=== PATIENT | female | born 1985 | race Caucasian/White ===

== ENCOUNTER 2023-06-23 13:06 | Emergency (ER) | payer MEDICAID ==
[~2023-06-23] VITALS: Ht 157.5 cm; Wt 100.0 kg
[2023-06-23] MEDS ORDERED: ERYT1OIN6 EACHEYE (13:20)
[2023-06-23] MEDS ORDERED: METH-798 PO (13:20)
[2023-06-23 13:34] VITALS: BP 125/80; PULSE 122; RESP 16; TEMP 98.5; O2SAT 99
== END 2023-06-23 16:41 | disposition home or self-care (01) ==
LOC: ER 13:08
DX: H00.013 Hordeolum externum right eye, unspecified eyelid (principal); R25.2 Cramp and spasm
CPT/HCPCS: 99281; 99283

== ENCOUNTER 2023-08-23 20:44 | Emergency (ER) | payer MEDICAID ==
[~2023-08-23] VITALS: Ht 172.7 cm; Wt 116.0 kg
[~2023-08-23 20:44] MED LIST: METH-798 PO
[2023-08-23 20:49] VITALS: PULSE 106; RESP 16; TEMP 98; O2SAT 97
[2023-08-23 21:28] VITALS: BP 129/79
[2023-08-23 21:30] LABS: BASOPHILS # (AUTO) 0.2 X10'3 (0-0.2); EOSINOPHILS # (AUTO) 0.2 X10'3 (0-0.9); EOSINOPHILS % (AUTO) 2.5 % (0-6); HEMATOCRIT 27.7 % (35.0-45.0); LYMPHOCYTES # (AUTO) 2.3 X10'3 (1.1-4.8); LYMPHOCYTES % (AUTO) 25.2 % (21-51); MEAN CORPUSCULAR HEMOGLOBIN 22.8 PG (27.0-31.0); MEAN CORPUSCULAR HGB CONC 32.4 g/dL (33.0-36.5); MEAN CORPUSCULAR VOLUME 70.2 FL (78-98); MEAN PLATELET VOLUME 7.2 FL (7.4-10.4); MONOCYTES # (AUTO) 0.6 X10'3 (0-0.9); MONOCYTES % (AUTO) 6.2 % (2-12); NEUTROPHILS # (AUTO) 5.8 X10'3 (1.8-7.7); NEUTROPHILS % (AUTO) 64.1 % (42-75); PLATELET COUNT 352 X10'3 (140-440); RED BLOOD COUNT 3.94 X10'6 (4.20-5.60); RED CELL DISTRIBUTION WIDTH 17.3 % (11.5-14.5); WHITE BLOOD COUNT 9.1 X10'3 (4.5-11.0)
[2023-08-23 21:44] LABS: APTT 27 SECONDS (22-32); D-DIMER 0.51 MG/L FEU (0-0.50); PROTHROMBIN TIME 9.9 SECONDS (9.0-12.0)
[2023-08-23 21:50] LABS: ALBUMIN 3.4 G/DL (3.4-5.0); ANION GAP 6 (8-16); BLOOD UREA NITROGEN 15 MG/DL (7-18); BUN/CREATININE RATIO 19.7 (10.0-20.0); CALCIUM 8.4 MG/DL (8.5-10.1); CHLORIDE 102 MMOL/L (99-107); CREATININE 0.76 MG/DL (0.40-0.90); GLUCOSE 129 MG/DL (70-104); POTASSIUM 3.7 MMOL/L (3.5-5.1); SODIUM 138 MMOL/L (135-145); TOTAL CARBON DIOXIDE 29.8 MMOL/L (24-32); eCRCL 103 ML/MIN; eGFR 86 ML/MIN
[2023-08-23 21:53] LABS: INR 0.9 INR
[2023-08-23] MEDS ORDERED: FURO20TA4 PO (22:37)
[2023-08-23] MEDS ORDERED: POTA-192 PO (22:37)
[2023-08-24 00:54] LABS: TOTAL CELLS COUNTED 100
[2023-08-24 01:10] LABS: ANISOCYTOSIS 1+; HYPOCHROMASIA 1+; MICROCYTOSIS 1+; PLATELET ESTIMATE NORMAL
[2023-08-24 01:11] LABS: ELLIPTOCYTES FEW
== END 2023-08-23 22:50 | disposition home or self-care (01) ==
LOC: ER 20:45
DX: R60.9 Edema, unspecified (principal); R79.1 Abnormal coagulation profile; Z88.8 Allergy status to other drugs, medicaments and biological substances; Z79.899 Other long term (current) drug therapy
CPT/HCPCS: 36415; 71045; 80048; 84484; 85007; 85025; 85379; 85610; 85730; 93005; 99285

== ENCOUNTER 2023-11-19 03:18 | Emergency (ER) | payer MEDICAID ==
[~2023-11-19] VITALS: Ht 157.5 cm; Wt 100.0 kg
[~2023-11-19 03:18] MED LIST changes: +FURO20TA4 PO
[2023-11-19] MEDS: normal saline 1000ml 1,000 ML IV ONE (03:57)
[2023-11-19 04:35] LABS: STREP A SCREEN NEGATIVE (Neg)
[2023-11-19] MEDS ORDERED: iohexol 300mg/ml 100ml inj. ONE (05:19)
[2023-11-19 06:06] LABS: BASOPHILS # (AUTO) 0.1 X10'3 (0-0.2); BASOPHILS % (AUTO) 0.9 % (0-1); EOSINOPHILS # (AUTO) 0.2 X10'3 (0-0.9); HEMATOCRIT 28.1 % (35.0-45.0); HEMOGLOBIN 8.6 g/dl (12.0-16.0); LYMPHOCYTES % (AUTO) 36.5 % (21-51); MEAN CORPUSCULAR HEMOGLOBIN 21.5 PG (27.0-31.0); MEAN CORPUSCULAR HGB CONC 30.5 g/dL (33.0-36.5); MEAN CORPUSCULAR VOLUME 70.6 FL (78-98); MEAN PLATELET VOLUME 7.6 FL (7.4-10.4); MONOCYTES # (AUTO) 0.9 X10'3 (0-0.9); MONOCYTES % (AUTO) 10.4 % (2-12); NEUTROPHILS % (AUTO) 49.2 % (42-75); PLATELET COUNT 306 X10'3 (140-440); RED BLOOD COUNT 3.98 X10'6 (4.20-5.60); RED CELL DISTRIBUTION WIDTH 18.6 % (11.5-14.5); WHITE BLOOD COUNT 8.2 X10'3 (4.5-11.0)
[2023-11-19 06:12] LABS: ALBUMIN 3.4 G/DL (3.4-5.0); ANION GAP 9 (8-16); BLOOD UREA NITROGEN 8 MG/DL (7-18); BUN/CREATININE RATIO 10.7 (10.0-20.0); CALCIUM 8.5 MG/DL (8.5-10.1); CHLORIDE 106 MMOL/L (99-107); CREATININE 0.75 MG/DL (0.40-0.90); ETHANOL < 10 MG/DL (<10); GLUCOSE 114 MG/DL (70-104); MAGNESIUM 2.1 MG/DL (1.5-2.4); SODIUM 140 MMOL/L (135-145); TOTAL CARBON DIOXIDE 25.2 MMOL/L (24-32); eCRCL 82 ML/MIN; eGFR 87 ML/MIN
[2023-11-19] MEDS ORDERED: ketorolac trometh. 30mg/ml inj. IV ONE (06:25)
[2023-11-19] MEDS: ketorolac tromethamine 15mg/ml inj. IV ONE (06:50)
[2023-11-19] MEDS: methylPREDNISolone sod succ 125mg/2ml vial IV ONE (06:50)
[2023-11-19] MEDS: clindamycin 600mg/D5W 50ml 50 ML IV ONE (06:50)
[2023-11-19 07:00] LABS: HCG SERUM QL NEGATIVE
[2023-11-19 09:23] VITALS: TEMP 98.1
[2023-11-19 12:05] LABS: ANISOCYTOSIS 2+; ELLIPTOCYTES 1+; MICROCYTOSIS 1+; PLATELET ESTIMATE NORMAL; STOMATOCYTES FEW
[2023-11-19 13:06] LABS: BILIRUBIN,URINE NEGATIVE (Neg); CLARITY,URINE CLEAR (Clear); COLOR,URINE YELLOW (Yellow); GLUCOSE, URINE NEGATIVE (Neg); KETONES,URINE NEGATIVE (Neg); LEUKOCYTE ESTERASE ,URINE SMALL (Neg); NITRITES, URINE NEGATIVE (Neg); OCCULT BLOOD,URINE NEGATIVE (Neg); PH,URINE 5.5 (4.8-8.0); PROTEIN,URINE NEGATIVE (Neg); UROBILINOGEN,URINE 0.2 E.U/dL (0.2-1.0)
[2023-11-19 13:13] LABS: UA COLLECTION TYPE NON-SPECIFIED
[2023-11-19 13:14] LABS: BACTERIA,URINE 1+ /HPF (Neg); MUCUS STRANDS FEW /LPF (Neg); SQUAMOUS EPITHELIAL CELL,UR MODERATE /LPF (FEW)
[2023-11-19 13:16] LABS: URINE AMPHETAMINE SCREEN NEGATIVE (Neg); URINE BARBITUATE SCREEN NEGATIVE (Neg); URINE BENZODIAZEPINES SCREEN NEGATIVE (Neg); URINE CANNABINOID SCREEN NEGATIVE (Neg); URINE COCAINE SCREEN NEGATIVE (Neg); URINE METHADONE SCREEN NEGATIVE (Neg); URINE OPIATE SCREEN NEGATIVE (Neg); URINE PHENCYCLIDINE SCREEN NEGATIVE (Neg)
[2023-11-19 17:07] VITALS: BP 158/89; RESP 17
[2023-11-19 19:01] VITALS: PULSE 106; O2SAT 98
== END 2023-11-19 19:53 | disposition left against medical advice (07) ==
LOC: ER 03:18
DX: R22.1 Localized swelling, mass and lump, neck (principal); Z88.8 Allergy status to other drugs, medicaments and biological substances; Z79.899 Other long term (current) drug therapy
CPT/HCPCS: 36415; 70450; 70491; 80048; 80305; 80320; 81001; 83605; 83735; 84145; 84703; 85008; 85025; 87040; 87081; 87088; 87880; 96365; 96375; 99285; J1885; J2919; J3490; J7030; Q9967; 96361

== ENCOUNTER 2023-12-16 23:55 | Emergency (ER) | payer MEDICAID ==
[~2023-12-16] VITALS: Ht 157.5 cm; Wt 104.1 kg
[2023-12-16 23:59] VITALS: TEMP 98.5
[2023-12-17 03:18] LABS: BASOPHILS # (AUTO) 0.1 X10'3 (0-0.2); EOSINOPHILS # (AUTO) 0.2 X10'3 (0-0.9); EOSINOPHILS % (AUTO) 2.1 % (0-6); HEMATOCRIT 34.2 % (35.0-45.0); HEMOGLOBIN 10.7 g/dl (12.0-16.0); LYMPHOCYTES # (AUTO) 3.3 X10'3 (1.1-4.8); LYMPHOCYTES % (AUTO) 30.8 % (21-51); MEAN CORPUSCULAR HEMOGLOBIN 23.3 PG (27.0-31.0); MEAN CORPUSCULAR HGB CONC 31.3 g/dL (33.0-36.5); MEAN CORPUSCULAR VOLUME 74.5 FL (78-98); MEAN PLATELET VOLUME 8.1 FL (7.4-10.4); MONOCYTES # (AUTO) 0.9 X10'3 (0-0.9); MONOCYTES % (AUTO) 7.9 % (2-12); NEUTROPHILS # (AUTO) 6.3 X10'3 (1.8-7.7); NEUTROPHILS % (AUTO) 58.2 % (42-75); PLATELET COUNT 351 X10'3 (140-440); RED BLOOD COUNT 4.59 X10'6 (4.20-5.60); RED CELL DISTRIBUTION WIDTH 24.1 % (11.5-14.5); WHITE BLOOD COUNT 10.8 X10'3 (4.5-11.0)
[2023-12-17 03:31] LABS: ALBUMIN 3.8 G/DL (3.4-5.0); ANION GAP 12 (8-16); BLOOD UREA NITROGEN 8 MG/DL (7-18); BUN/CREATININE RATIO 10.4 (10.0-20.0); CALCIUM 9.5 MG/DL (8.5-10.1); CHLORIDE 102 MMOL/L (99-107); CREATININE 0.77 MG/DL (0.40-0.90); GLUCOSE 117 MG/DL (70-104); POTASSIUM 3.3 MMOL/L (3.5-5.1); PRO BRAIN NATRIURETIC PEPTIDE < 30 PG/ML (0-125); SODIUM 139 MMOL/L (135-145); TOTAL CARBON DIOXIDE 25.3 MMOL/L (24-32); eCRCL 80 ML/MIN; eGFR 85 ML/MIN
[2023-12-17 03:41] LABS: HCG SERUM QL NEGATIVE
[2023-12-17 04:27] LABS: ANISOCYTOSIS 3+; ELLIPTOCYTES FEW; MICROCYTOSIS 1+; PLATELET ESTIMATE NORMAL; STOMATOCYTES FEW
[2023-12-17 04:47] LABS: BILIRUBIN,URINE NEGATIVE (Neg); CLARITY,URINE CLOUDY (Clear); COLOR,URINE YELLOW (Yellow); GLUCOSE, URINE NEGATIVE (Neg); KETONES,URINE NEGATIVE (Neg); LEUKOCYTE ESTERASE ,URINE MODERATE (Neg); OCCULT BLOOD,URINE NEGATIVE (Neg); PROTEIN,URINE TRACE mg/dl (Neg); URINE HCG NEGATIVE (NEG); UROBILINOGEN,URINE 0.2 E.U/dL (0.2-1.0)
[2023-12-17 04:48] LABS: UA COLLECTION TYPE CLN CATCH MIDSTREAM
[2023-12-17 04:49] LABS: NITRITES, URINE NEGATIVE (Neg)
[2023-12-17 04:54] LABS: AMORPHOUS URATES 4+; BACTERIA,URINE 1+ /HPF (Neg); MUCUS STRANDS FEW /LPF (Neg); RBC,URINE 0-2 /HPF (0-2); SQUAMOUS EPITHELIAL CELL,UR FEW /LPF (FEW); TRANSITIONAL EPI CELLS,URINE FEW /HPF
[2023-12-17] MEDS ORDERED: ONDA-243 PO (05:19)
[2023-12-17 05:56] VITALS: BP 144/90; PULSE 75; RESP 18; O2SAT 97
== END 2023-12-17 05:59 | disposition home or self-care (01) ==
LOC: ER 23:55
DX: E86.0 Dehydration (principal); R11.0 Nausea; R25.2 Cramp and spasm; Z88.8 Allergy status to other drugs, medicaments and biological substances; Z79.899 Other long term (current) drug therapy
CPT/HCPCS: 36415; 80048; 81001; 81025; 83880; 84484; 84703; 85008; 85025; 87088; 99283

== ENCOUNTER 2024-01-28 11:44 | Emergency (ER) | payer MEDICAID, OTHER ==
[~2024-01-28] VITALS: Ht 157.5 cm; Wt 104.5 kg
[~2024-01-28 11:44] MED LIST changes: +ONDA-243 PO
[2024-01-28] MEDS ORDERED: POTA8CAP20 PO (12:19)
[2024-01-28] MEDS ORDERED: FERR325T28 PO (12:19)
[2024-01-28] MEDS ORDERED: QUET400T PO (12:19)
[2024-01-28] MEDS ORDERED: FURO-150 PO (12:19)
[2024-01-28] MEDS ORDERED: DULO60CA65 PO (12:19)
[2024-01-28] MEDS ORDERED: KEN0.1O TOP (12:19)
[2024-01-28 12:29] VITALS: BP 146/95; PULSE 105; RESP 18; TEMP 98.4; O2SAT 98
== END 2024-01-28 12:30 | disposition home or self-care (01) ==
LOC: ER 11:44
DX: L23.89 Allergic contact dermatitis due to other agents (principal); Z88.8 Allergy status to other drugs, medicaments and biological substances; Z79.899 Other long term (current) drug therapy
CPT/HCPCS: 99283

== ENCOUNTER 2024-02-09 19:58 | Emergency (ER) | payer MEDICAID ==
[~2024-02-09] VITALS: Ht 154.9 cm; Wt 106.5 kg
[~2024-02-09 19:58] MED LIST changes: +DULO60CA65 PO; +FERR325T28 PO; +FURO-150 PO; +POTA8CAP20 PO; +QUET400T PO
[2024-02-09 20:02] VITALS: BP 146/85; PULSE 88; TEMP 98.1; O2SAT 98
[2024-02-09] MEDS: LORazepam 1 MG tablet PO ONE (22:43)
[2024-02-09 23:52] VITALS: RESP 18
[2024-02-10] MEDS ORDERED: SULF1TAB49 PO (22:58)
[2024-02-10] MEDS ORDERED: CEPH-585 PO (22:58)
[2024-02-10] MEDS ORDERED: FURO-150 PO (22:58)
== END 2024-02-09 23:54 | disposition home or self-care (01) ==
LOC: ER 19:58
DX: F41.9 Anxiety disorder, unspecified (principal); T43.4X5A Adverse effect of butyrophenone and thiothixene neuroleptics, initial encounter; Z88.8 Allergy status to other drugs, medicaments and biological substances; Z79.899 Other long term (current) drug therapy; Y92.89 Other specified places as the place of occurrence of the external cause
CPT/HCPCS: 99283

== ENCOUNTER 2024-02-10 20:41 | Emergency (ER) | payer MEDICAID ==
[~2024-02-10] VITALS: Ht 162.6 cm; Wt 77.4 kg
[2024-02-10] MEDS ORDERED: CEPH-585 PO (22:58)
[2024-02-10] MEDS ORDERED: SULF1TAB49 PO (22:58)
[2024-02-10] MEDS ORDERED: FURO-150 PO (22:58)
[2024-02-10] MEDS: cephalexin 250mg capsule PO ONE (23:24)
[2024-02-10] MEDS: sulfamethoxazole/trimethoprim DS (800/160mg) tablet PO ONE (23:25)
[2024-02-10 23:34] VITALS: BP 134/79; PULSE 7; RESP 16; TEMP 98.6; O2SAT 100
== END 2024-02-10 23:44 | disposition home or self-care (01) ==
LOC: ER 20:42
DX: L03.116 Cellulitis of left lower limb (principal); L03.115 Cellulitis of right lower limb; R60.0 Localized edema; Z88.8 Allergy status to other drugs, medicaments and biological substances; Z79.899 Other long term (current) drug therapy
CPT/HCPCS: 99284

== ENCOUNTER 2024-04-08 10:15 | Emergency (ER) | payer MEDICAID ==
[~2024-04-08] VITALS: Ht 157.5 cm; Wt 109.8 kg
[~2024-04-08 10:15] MED LIST changes: -FERR325T28 PO; -POTA8CAP20 PO
[2024-04-08 10:16] VITALS: BP 129/87; PULSE 116; RESP 16; O2SAT 97
[2024-04-08 11:45] VITALS: TEMP 97.9
== END 2024-04-08 11:49 | disposition home or self-care (01) ==
LOC: ER 10:15
DX: L08.89 Other specified local infections of the skin and subcutaneous tissue (principal); Z88.8 Allergy status to other drugs, medicaments and biological substances; Z79.899 Other long term (current) drug therapy
CPT/HCPCS: 99281